=== PATIENT | female | born 1950 | race Caucasian/White ===

== ENCOUNTER 2017-07-24 15:34 | Inpatient (IN) | payer OTHER, MEDICARE ==
[~2017-07-24] VITALS: Ht 172.7 cm; Wt 75.4 kg
[~2017-07-24 15:34] MED LIST: BUPIVACAINE /PF 0.25% 30 ML VIAL INJ ONE; CLINDAMYCIN PHOSPHATE 600 mg/50mL D5W IV ONE; HEPARIN SODIUM,PORCINE 5000 UNITS/ML VIAL SUBCUT ONE; MIDAZOLAM HCL 5 MG/5 ML VIAL IVP ONE; NS 1000 ML BAG IV ONE; PROPOFOL 200MG/ 20ML VIAL (DIPRIVAN) IV ONE
[2017-07-24 15:40] VITALS: BP_SYST 150
[2017-07-24 19:51] LABS: BASOPHILS % (AUTO) 0.7 % (0.0-2.0); EOSINOPHILS # (AUTO) 0.1 K/uL (0.0-0.4); EOSINOPHILS % (AUTO) 1.8 % (0.0-4.0); LYMPHOCYTES # (AUTO) 1.4 K/uL (1.0-5.5); MONOCYTES # (AUTO) 0.4 K/uL (0.0-1.0)
[2017-07-24 19:56] LABS: LYMPHOCYTES % (AUTO) 20.3 % (20.5-51.5); MEAN CORPUSCULAR HEMOGLOBIN 28 pg (27-31); MEAN CORPUSCULAR HGB CONC 32 % (32-36); MEAN CORPUSCULAR VOLUME 87 fL (79.0-98.0); MONOCYTES % (AUTO) 6.1 % (1.7-9.3); NEUTROPHILS % (AUTO) 71.1 % (40.0-70.0); PLATELET COUNT (AUTO) 199 K/uL (130-430); RED BLOOD CELL COUNT(AUTO) 2.34 MIL/uL (4.2-6.2); RED CELL DISTRIBUTION WIDTH 16.7 % (9.0-15.0); WHITE BLOOD COUNT (AUTO) 6.9 K/uL (4.8-10.8)
[2017-07-24 19:59] LABS: CREATININE 6.08 mg/dL (0.55-1.30); HEMATOCRIT 20.4 % (36-48); HEMOGLOBIN 6.6 g/dL (12.0-16.0); POTASSIUM 5.4 mmol/L (3.5-5.1)
[2017-07-24 20:01] LABS: PROTHROMBIN TIME 10.3 SECS (9.5-12.5)
[2017-07-24 20:05] LABS: ALBUMIN 3.4 g/dL (3.4-4.8); TOTAL BILIRUBIN 0.3 mg/dL (0.0-1.0)
[2017-07-24] MEDS ORDERED: SODIUM POLYSTYRENE SULFONATE 15 GM/60 ML UDBTL PO ONE (20:30)
[2017-07-24] MEDS ORDERED: DEXTROSE 50% JECT 50 ML DISP.SYRIN IVP ONE (20:30)
[2017-07-24] MEDS ORDERED: NS 500 ML IV ONE (20:30)
[2017-07-24] MEDS ORDERED: INSULIN REGULAR, HUMAN 10 UNITS/0.1 ML INJ IVP ONE (20:30)
[2017-07-24] MEDS ORDERED: ALBUTEROL SULFATE 0.083% 2.5 MG/3 ML VIAL.NEB INH ONE (20:30)
[2017-07-24] MEDS ORDERED: DITXL5 PO (20:57)
[2017-07-24] MEDS ORDERED: LOSA100T11 PO (20:57)
[2017-07-24] MEDS ORDERED: PRAV40TA PO (20:57)
[2017-07-24] MEDS ORDERED: NOR10 PO (20:57)
[2017-07-24] MEDS ORDERED: FUROSEMIDE 40 MG/4 ML VIAL IVP ONE (21:00)
[2017-07-24 22:15] VITALS: BP_SYST 144
[2017-07-24] MEDS ORDERED: ACETAMINOPHEN 500 MG TABLET ONE (22:21)
[2017-07-24 22:25] LABS: BILIRUBIN,URINE NEGATIVE (NEGATIVE); BLOOD, URINE 1+ (NEGATIVE); CLARITY/URINE CLEAR (CLEAR); COLOR,URINE YELLOW (YELLOW); GLUCOSE,URINE NEGATIVE (NEGATIVE); KETONES,URINE NEGATIVE (NEGATIVE); LEUKOCYTE ESTERASE ,URINE NEGATIVE (NEGATIVE); NITRITE, URINE NEGATIVE (NEGATIVE); PH,URINE 5.5 (5.0-8.0); PROTEIN URINE 3+ (NEGATIVE); UROBILINOGEN,URINE 0.2 (0.2-1.0)
[2017-07-24] MEDS ORDERED: ACETAMINOPHEN 500 MG TABLET PO ONE (22:30)
[2017-07-24] MEDS ORDERED: ACETAMINOPHEN 325 MG TABLET PO PRN (22:45)
[2017-07-24] MEDS ORDERED: INSULIN ASPART 100 UNITS/ML, 10 ML VIAL (NovoLOG) SUBCUT PRN (22:45)
[2017-07-24] MEDS ORDERED: cefTRIAXone 1 GM in D5W 50 ML IV ONE (22:45)
[2017-07-24 22:51] LABS: BACTERIA,URINE FEW /HPF (None Seen); MUCUS,URINE 1+ /LPF (None Seen); WBC,URINE 0-3 /HPF (0-3)
[2017-07-24 22:52] LABS: FINE GRANULAR CASTS,URINE 0-10 /LPF (None Seen)
[2017-07-24] MEDS ORDERED: HYDROcodone/ACETAMIN 5-325 MG TAB (NORCO/ VICODIN) PO PRN (23:00)
[2017-07-24] MEDS ORDERED: cloNIDine HCL 0.1 MG TABLET PO PRN (23:00)
[2017-07-24 23:33] VITALS: BP_SYST 161
[2017-07-24 23:34] VITALS: BP_SYST 159
[2017-07-25] VITALS (8 sets, daily range): BP systolic 145–161
[2017-07-25] MEDS: hydrALAZINE HCL 25 MG TABLET PO SCH ×4 (00:49→22:14)
[2017-07-25] MEDS ORDERED: hydrALAZINE HCL 25 MG TABLET PO ONE (01:00)
[2017-07-25] MEDS ORDERED: INSULIN ASPART 100 UNITS/ML, 10 ML VIAL (NovoLOG) SUBCUT PRN ×2 (04:00→15:15)
[2017-07-25] MEDS ORDERED: DEXTROSE 50% JECT 50 ML DISP.SYRIN IVP PRN (04:00)
[2017-07-25] MEDS ORDERED: FLU VACC QS 2017-18(36MOS+)/PF 0.5 ML/SYR SYRINGE I.M. PRN (05:30)
[2017-07-25 08:00] LABS: ALBUMIN 3.1 g/dL (3.4-4.8); BILIRUBIN,DIRECT 0.1 mg/dL (0.0-0.3); CALCIUM 7.9 mg/dL (8.4-11.0); CREATININE 5.96 mg/dL (0.55-1.30); POTASSIUM 4.7 mmol/L (3.5-5.1); THYROID STIMULATING HORMONE 1.71 uIu/mL (0.34-4.82); TOTAL BILIRUBIN 0.3 mg/dL (0.0-1.0)
[2017-07-25 08:06] LABS: BASOPHILS % (AUTO) 0.4 % (0.0-2.0); EOSINOPHILS % (AUTO) 0.3 % (0.0-4.0); HEMATOCRIT 22.1 % (36-48); LYMPHOCYTES # (AUTO) 0.6 K/uL (1.0-5.5); LYMPHOCYTES % (AUTO) 8.2 % (20.5-51.5); MEAN CORPUSCULAR HEMOGLOBIN 27 pg (27-31); MEAN CORPUSCULAR HGB CONC 32 % (32-36); MEAN CORPUSCULAR VOLUME 87 fL (79.0-98.0); MONOCYTES # (AUTO) 0.2 K/uL (0.0-1.0); MONOCYTES % (AUTO) 3.3 % (1.7-9.3); NEUTROPHILS # (AUTO) 6.7 K/uL (1.8-7.7); PLATELET COUNT (AUTO) 164 K/uL (130-430); RED BLOOD CELL COUNT(AUTO) 2.56 MIL/uL (4.2-6.2); RED CELL DISTRIBUTION WIDTH 17.2 % (9.0-15.0); WHITE BLOOD COUNT (AUTO) 7.5 K/uL (4.8-10.8)
[2017-07-25] MEDS: FAMOTIDINE 20 MG TABLET PO SCH (08:40)
[2017-07-25 08:58] LABS: TOTAL IRON BIND. CAPACITY 252 ug/dL (250-450)
[2017-07-25] MEDS: ACETAMINOPHEN 325 MG TABLET PO PRN ×2 (09:28→20:38)
[2017-07-25 10:45] LABS: NEUTROPHILS % (AUTO) 87.8 % (40.0-70.0)
[2017-07-25] MEDS ORDERED: COMMUNICATION ORDER XX ONE (15:15)
[2017-07-25] MEDS: IPRATROPIUM/ALBUTEROL SULFATE 3 ML AMPUL.NEB INH SCH ×2 (15:58→23:56)
[2017-07-25] MEDS: NICOTINE 7 MG/24 HR PATCH.TD24 TD SCH (16:42)
[2017-07-25] MEDS ORDERED: cefTRIAXone 1 GM in D5W 50 ML IV SCH (21:00)
[2017-07-26] MEDS ORDERED: D5/0.45 NS 1,000 ML IV ONE
[2017-07-26] MEDS: hydrALAZINE HCL 25 MG TABLET PO SCH ×3 (05:55→23:06)
[2017-07-26 07:07] LABS: BASOPHILS % (AUTO) 0.6 % (0.0-2.0); EOSINOPHILS # (AUTO) 0.2 K/uL (0.0-0.4); EOSINOPHILS % (AUTO) 2.4 % (0.0-4.0); HEMATOCRIT 24.5 % (36-48); LYMPHOCYTES # (AUTO) 1.3 K/uL (1.0-5.5); LYMPHOCYTES % (AUTO) 18.6 % (20.5-51.5); MEAN CORPUSCULAR HEMOGLOBIN 28 pg (27-31); MEAN CORPUSCULAR HGB CONC 33 % (32-36); MEAN CORPUSCULAR VOLUME 86 fL (79.0-98.0); MONOCYTES # (AUTO) 0.5 K/uL (0.0-1.0); MONOCYTES % (AUTO) 6.7 % (1.7-9.3); NEUTROPHILS # (AUTO) 4.9 K/uL (1.8-7.7); NEUTROPHILS % (AUTO) 71.7 % (40.0-70.0); PLATELET COUNT (AUTO) 164 K/uL (130-430); RED BLOOD CELL COUNT(AUTO) 2.87 MIL/uL (4.2-6.2); RED CELL DISTRIBUTION WIDTH 16.1 % (9.0-15.0); WHITE BLOOD COUNT (AUTO) 6.9 K/uL (4.8-10.8)
[2017-07-26 07:37] LABS: ALBUMIN 3.1 g/dL (3.4-4.8); CALCIUM 7.7 mg/dL (8.4-11.0); CREATININE 5.64 mg/dL (0.55-1.30); POTASSIUM 4.2 mmol/L (3.5-5.1); TOTAL BILIRUBIN 0.3 mg/dL (0.0-1.0)
[2017-07-26] MEDS: IPRATROPIUM/ALBUTEROL SULFATE 3 ML AMPUL.NEB INH SCH ×3 (07:49→23:13)
[2017-07-26 08:00] VITALS: BP_SYST 161
[2017-07-26] MEDS ORDERED: fentaNYL CITRATE/PF 100 MCG/2 ML AMP IVP PRN ×2 (09:00)
[2017-07-26] MEDS ORDERED: ONDANSETRON HCL 4 MG/2 ML VIAL IVP PRN (09:00)
[2017-07-26 09:45] VITALS: BP_SYST 156
[2017-07-26] MEDS: FAMOTIDINE 20 MG TABLET PO SCH (09:56)
[2017-07-26] MEDS: NICOTINE 7 MG/24 HR PATCH.TD24 TD SCH (09:56)
[2017-07-26] MEDS: ACETAMINOPHEN 325 MG TABLET PO PRN ×2 (12:58→23:15)
[2017-07-26] MEDS ORDERED: HEPARIN SODIUM,PORCINE 5000 UNITS/ML VIAL MC ONE (16:45)
[2017-07-26] MEDS ORDERED: NEPHROVITE, (FOLIC ACID/VITAMIN B COMP W-C 1 TAB) PO ONE (17:00)
[2017-07-26 17:28] VITALS: BP_SYST 160
[2017-07-26 19:53] VITALS: BP_SYST 146
[2017-07-26 23:02] VITALS: BP_SYST 155
[2017-07-27 05:54] VITALS: BP_SYST 155
[2017-07-27] MEDS: hydrALAZINE HCL 25 MG TABLET PO SCH ×3 (05:57→22:58)
[2017-07-27] MEDS: IPRATROPIUM/ALBUTEROL SULFATE 3 ML AMPUL.NEB INH SCH ×3 (07:31→23:32)
[2017-07-27 08:19] LABS: ALBUMIN 2.7 g/dL (3.4-4.8); BASOPHILS % (AUTO) 0.7 % (0.0-2.0); CREATININE 3.98 mg/dL (0.55-1.30); EOSINOPHILS # (AUTO) 0.1 K/uL (0.0-0.4); EOSINOPHILS % (AUTO) 1.7 % (0.0-4.0); HEMATOCRIT 24.4 % (36-48); HEMOGLOBIN 8.1 g/dL (12.0-16.0); LYMPHOCYTES # (AUTO) 1.3 K/uL (1.0-5.5); LYMPHOCYTES % (AUTO) 20.2 % (20.5-51.5); MEAN CORPUSCULAR HEMOGLOBIN 28 pg (27-31); MEAN CORPUSCULAR HGB CONC 33 % (32-36); MEAN CORPUSCULAR VOLUME 86 fL (79.0-98.0); MONOCYTES # (AUTO) 0.5 K/uL (0.0-1.0); MONOCYTES % (AUTO) 8.3 % (1.7-9.3); NEUTROPHILS # (AUTO) 4.6 K/uL (1.8-7.7); NEUTROPHILS % (AUTO) 69.1 % (40.0-70.0); PLATELET COUNT (AUTO) 163 K/uL (130-430); POTASSIUM 3.3 mmol/L (3.5-5.1); RED BLOOD CELL COUNT(AUTO) 2.85 MIL/uL (4.2-6.2); TOTAL BILIRUBIN 0.3 mg/dL (0.0-1.0); WHITE BLOOD COUNT (AUTO) 6.5 K/uL (4.8-10.8)
[2017-07-27 08:24] VITALS: BP_SYST 155
[2017-07-27] MEDS: NICOTINE 7 MG/24 HR PATCH.TD24 TD SCH (10:11)
[2017-07-27] MEDS: NEPHROVITE, (FOLIC ACID/VITAMIN B COMP W-C 1 TAB) PO SCH (10:11)
[2017-07-27] MEDS: FAMOTIDINE 20 MG TABLET PO SCH (10:11)
[2017-07-27] MEDS: ACETAMINOPHEN 325 MG TABLET PO PRN (10:18)
[2017-07-27 12:25] VITALS: BP_SYST 140
[2017-07-27] MEDS ORDERED: METOCLOPRAMIDE HCL 10 MG TABLET PO ONE (16:00)
[2017-07-27 16:52] VITALS: BP_SYST 157
[2017-07-27] MEDS ORDERED: EPOETIN ALFA 10,000 UNITS/ML VIAL SUBCUT SCH (18:00)
[2017-07-27 20:00] VITALS: BP_SYST 136
[2017-07-27 23:12] VITALS: BP_SYST 144
[2017-07-28] MEDS: ACETAMINOPHEN 325 MG TABLET PO PRN (03:37)
[2017-07-28 03:54] VITALS: BP_SYST 136
[2017-07-28 04:26] LABS: FOLATE (FOLIC ACID) 8.8 ng/mL (>3.0)
[2017-07-28] MEDS: IPRATROPIUM/ALBUTEROL SULFATE 3 ML AMPUL.NEB INH SCH ×2 (07:00→15:32)
[2017-07-28] MEDS: hydrALAZINE HCL 25 MG TABLET PO SCH ×2 (07:05→14:44)
[2017-07-28 07:16] VITALS: BP_SYST 126
[2017-07-28 08:05] VITALS: BP_SYST 126
[2017-07-28] MEDS: NICOTINE 7 MG/24 HR PATCH.TD24 TD SCH (09:38)
[2017-07-28] MEDS: NEPHROVITE, (FOLIC ACID/VITAMIN B COMP W-C 1 TAB) PO SCH (09:38)
[2017-07-28] MEDS: FAMOTIDINE 20 MG TABLET PO SCH (09:38)
[2017-07-28 11:48] VITALS: BP_SYST 119
[2017-07-28 16:00] VITALS: BP_SYST 112
[2017-07-28] MEDS ORDERED: METOCLOPRAMIDE HCL 10 MG/2 ML VIAL IVP PRN (16:30)
[2017-07-28] MEDS ORDERED: POTASSIUM CHLORIDE 20 MEQ TAB.PRT.SR PO ONE (17:15)
[2017-07-28 17:28] VITALS: BP_SYST 112
[2017-07-29 04:07] LABS: HEPATITIS B SURFACE AG Negative (Negative)
== END 2017-07-28 19:15 | disposition home or self-care (01) | DRG 682 ==
LOC: SED 15:34 → STU 21:32 → SMU 07-27 13:27
PROVIDERS: ADMIT Internal Medicine; ATTEND Internal Medicine
PROC: 30233N1 Transfusion of Nonautologous Red Blood Cells into Peripheral Vein, Percutaneous Approach (ICD-10-PCS; 2017-07-24)
PROC: 30233N1 Transfusion of Nonautologous Red Blood Cells into Peripheral Vein, Percutaneous Approach (ICD-10-PCS; 2017-07-25)
PROC: B5191ZA Fluoroscopy of Inferior Vena Cava using Low Osmolar Contrast, Guidance (ICD-10-PCS; 2017-07-26)
PROC: B549ZZA Ultrasonography of Inferior Vena Cava, Guidance (ICD-10-PCS; 2017-07-26)
PROC: 5A1D70Z Performance of Urinary Filtration, Intermittent, Less than 6 Hours Per Day (ICD-10-PCS; 2017-07-26)
PROC: 06H033Z Insertion of Infusion Device into Inferior Vena Cava, Percutaneous Approach (ICD-10-PCS; principal; 2017-07-26 08:00)
PROC: 5A1D70Z Performance of Urinary Filtration, Intermittent, Less than 6 Hours Per Day (ICD-10-PCS; 2017-07-27)
DX: N17.9 Acute kidney failure, unspecified (principal); I50.31 Acute diastolic (congestive) heart failure; I13.2 Hypertensive heart and chronic kidney disease with heart failure and with stage 5 chronic kidney disease, or end stage renal disease; E87.2 Acidosis; E11.21 Type 2 diabetes mellitus with diabetic nephropathy; E11.65 Type 2 diabetes mellitus with hyperglycemia; E44.1 Mild protein-calorie malnutrition; J44.9 Chronic obstructive pulmonary disease, unspecified; N18.6 End stage renal disease; E87.5 Hyperkalemia; J06.9 Acute upper respiratory infection, unspecified; D63.1 Anemia in chronic kidney disease; E11.22 Type 2 diabetes mellitus with diabetic chronic kidney disease; F17.210 Nicotine dependence, cigarettes, uncomplicated; E78.5 Hyperlipidemia, unspecified; E66.9 Obesity, unspecified; R32 Unspecified urinary incontinence; B19.20 Unspecified viral hepatitis C without hepatic coma; M46.90 Unspecified inflammatory spondylopathy, site unspecified; Z90.710 Acquired absence of both cervix and uterus; Z83.3 Family history of diabetes mellitus; Z68.25 Body mass index [BMI] 25.0-25.9, adult; Z79.899 Other long term (current) drug therapy
CPT/HCPCS: 36415; 71045; 76000; 76770; 80048; 80053; 80061; 80076; 81000-TC; 82272; 82550-TC; 82607; 82728; 82746; 82962; 83036; 83540-TC; 83550-TC; 83605; 83735-TC; 83880; 84443-TC; 84484; 85025; 85610-TC; 85730-TC; 86706; 86803; 86886; 86900; 86901; 86920; 87040-TC; 87081; 87340; 90935; 90937; 93005; 93306; 93970; 94640; 94760; 96361; 96374; 96375; 99285; J0696; J0885; J1644; J1815; J1940; J2250; J2704; J2765; J3490; J7030; J7040; J7050; J7060; J8597; P9021; Q2037

== ENCOUNTER 2019-01-10 07:47 | Emergency (ER) | payer OTHER, MEDICAID ==
[~2019-01-10] VITALS: Ht 152.4 cm; Wt 73.0 kg
[~2019-01-10 07:47] MED LIST changes: -BUPIVACAINE /PF 0.25% 30 ML VIAL INJ ONE; -CLINDAMYCIN PHOSPHATE 600 mg/50mL D5W IV ONE; +DITXL5 PO; -HEPARIN SODIUM,PORCINE 5000 UNITS/ML VIAL SUBCUT ONE; +LOSA100T3 PO; -MIDAZOLAM HCL 5 MG/5 ML VIAL IVP ONE; +NOR10 PO; -NS 1000 ML BAG IV ONE; +PRAV40TA PO; -PROPOFOL 200MG/ 20ML VIAL (DIPRIVAN) IV ONE
[2019-01-10 07:58] VITALS: BP_SYST 171
[2019-01-10] MEDS ORDERED: ALBUTEROL SULFATE 0.083% 2.5 MG/3 ML VIAL.NEB INH ONE (08:15)
[2019-01-10] MEDS ORDERED: LEVOFLOXACIN 500 MG/D5W 100 ML IV ONE (08:15)
[2019-01-10] MEDS ORDERED: ALBUTEROL SULFATE 0.083% 2.5 MG/3 ML VIAL.NEB INH PRN (08:15)
[2019-01-10 08:59] LABS: BASOPHILS # (AUTO) 0.1 K/uL (0.0-0.2); BASOPHILS % (AUTO) 0.8 % (0.0-2.0); EOSINOPHILS # (AUTO) 0.1 K/uL (0.0-0.4); EOSINOPHILS % (AUTO) 1.2 % (0.0-4.0); HEMATOCRIT 32.8 % (36-48); HEMOGLOBIN 10.8 g/dL (12.0-16.0); LYMPHOCYTES # (AUTO) 0.9 K/uL (1.0-5.5); LYMPHOCYTES % (AUTO) 12.6 % (20.5-51.5); MEAN CORPUSCULAR HEMOGLOBIN 32 pg (27-31); MEAN CORPUSCULAR HGB CONC 33 % (32-36); MEAN CORPUSCULAR VOLUME 95 fL (79.0-98.0); MONOCYTES # (AUTO) 0.5 K/uL (0.0-1.0); MONOCYTES % (AUTO) 7.3 % (1.7-9.3); NEUTROPHILS # (AUTO) 5.5 K/uL (1.8-7.7); NEUTROPHILS % (AUTO) 78.1 % (40.0-70.0); PLATELET COUNT (AUTO) 92 K/uL (130-430); RED BLOOD CELL COUNT(AUTO) 3.45 MIL/uL (4.2-6.2); RED CELL DISTRIBUTION WIDTH 16.8 % (9.0-15.0)
[2019-01-10 09:09] LABS: CALCIUM 8.4 mg/dL (8.4-11.0); POTASSIUM 5.2 mmol/L (3.5-5.1)
[2019-01-10 09:12] LABS: PROTHROMBIN TIME 10.5 SECS (9.5-12.5)
[2019-01-10 09:17] LABS: CREATININE 9.89 mg/dL (0.55-1.30)
[2019-01-10 09:19] LABS: TOTAL BILIRUBIN 0.5 mg/dL (0.0-1.0)
[2019-01-10 09:20] LABS: ALBUMIN 3.7 g/dL (3.4-4.8)
[2019-01-10] MEDS ORDERED: FUROSEMIDE 20 MG TABLET PO ONE (09:30)
[2019-01-10 10:05] VITALS: BP_SYST 168
[2019-01-10] MEDS ORDERED: FUROSEMIDE 20 MG TABLET ONE (10:27)
== END 2019-01-10 10:05 | disposition home or self-care (01) ==
LOC: SED 07:47
DX: I50.9 Heart failure, unspecified (principal); E11.9 Type 2 diabetes mellitus without complications; Z88.0 Allergy status to penicillin; Z79.899 Other long term (current) drug therapy
CPT/HCPCS: 36415; 71045; 80053; 83605; 83880; 84484; 85025; 87040; 85610; 93005; 94640; 96365; 99284; J1956; J7613

== ENCOUNTER 2019-02-17 10:40 | Emergency (ER) | payer OTHER, MEDICAID ==
[~2019-02-17] VITALS: Ht 152.4 cm; Wt 73.9 kg
[2019-02-17 10:40] VITALS: BP_SYST 180
--- NOTE | 2019-02-17 10:40 | NUR ---
BROUGHT BACK TO BED #3 AFTER TRIAGE, REPORT GIVEN TO RIAZ
--- NOTE | 2019-02-17 10:45 | NUR ---
Pt c/o SOB after Dialysis. Pt has no acute distress noted.
[2019-02-17] MEDS ORDERED: NITROGLYCERIN 1 INCH (GM) OINT. TP ONE (11:00)
--- NOTE | 2019-02-17 11:10 | NUR ---
ER at bedside examining patient.
[2019-02-17 11:21] LABS: BASOPHILS # (AUTO) 0.1 K/uL (0.0-0.2); BASOPHILS % (AUTO) 1.1 % (0.0-2.0); EOSINOPHILS # (AUTO) 0.1 K/uL (0.0-0.4); EOSINOPHILS % (AUTO) 1.4 % (0.0-4.0); HEMATOCRIT 34.9 % (36-48); HEMOGLOBIN 11.5 g/dL (12.0-16.0); LYMPHOCYTES % (AUTO) 17.3 % (20.5-51.5); MEAN CORPUSCULAR HEMOGLOBIN 30 pg (27-31); MEAN CORPUSCULAR HGB CONC 33 % (32-36); MEAN CORPUSCULAR VOLUME 92 fL (79.0-98.0); MONOCYTES # (AUTO) 0.6 K/uL (0.0-1.0); MONOCYTES % (AUTO) 10.1 % (1.7-9.3); NEUTROPHILS # (AUTO) 3.9 K/uL (1.8-7.7); NEUTROPHILS % (AUTO) 70.1 % (40.0-70.0); RED BLOOD CELL COUNT(AUTO) 3.79 MIL/uL (4.2-6.2); RED CELL DISTRIBUTION WIDTH 16.9 % (9.0-15.0); WHITE BLOOD COUNT (AUTO) 5.5 K/uL (4.8-10.8)
[2019-02-17 11:30] LABS: PLATELET COUNT (AUTO) 100 K/uL (130-430)
--- NOTE | 2019-02-17 11:30 | NUR ---
Pt reports ease in resp effort after breathing treatment
[2019-02-17 11:34] LABS: CALCIUM 8.7 mg/dL (8.4-11.0); CREATININE 2.8 mg/dL (0.55-1.30); POTASSIUM 3.5 mmol/L (3.5-5.1)
[2019-02-17 11:37] LABS: INR 1.1 (0.8-1.2); PROTHROMBIN TIME 11.1 SECS (9.5-12.5)
[2019-02-17 11:40] LABS: ALBUMIN 3.5 g/dL (3.4-4.8); TOTAL BILIRUBIN 0.6 mg/dL (0.0-1.0)
[2019-02-17] MEDS ORDERED: ALBUTEROL SULFATE 0.083% 2.5 MG/3 ML VIAL.NEB INH ONE (12:00)
[2019-02-17 12:41] VITALS: BP_SYST 153
--- NOTE | 2019-02-17 12:41 | NUR ---
Patient given written and verbal discharge instructions and verbalizes understanding. ER MD discussed with patient the results and treatment provided. Patient in stable condition. ID arm band removed. Rx of albuterol inh given. Patient educated on pain management and to follow up with PMD. Pain Scale 0. Opportunity for questions provided and answered. Medication side effect fact sheet provided.
== END 2019-02-17 12:41 | disposition home or self-care (01) ==
LOC: SED 10:40
DX: J40 Bronchitis, not specified as acute or chronic (principal); Z88.0 Allergy status to penicillin; Z79.899 Other long term (current) drug therapy
CPT/HCPCS: 36415; 71045; 80053; 83880; 84484; 85025; 85610; 94640; 99284; J7613

== ENCOUNTER 2021-05-27 23:25 | Inpatient (IN) | payer OTHER, MEDICAID, SELFPAY ==
[~2021-05-27] VITALS: Ht 152.4 cm; Wt 75.7 kg
[2021-05-27 23:40] VITALS: BP_SYST 132
--- NOTE | 2021-05-27 23:45 | NUR ---
Placed in room 1 . Placed on traffic monitor specialist, blood pressure machine and pulse oximeter. To gown for exam. Side rails up. Report given to Wu DIAS(registry).
--- NOTE | 2021-05-27 23:50 | NUR ---
JAE Martinez at bedside examining patient.
[2021-05-28] MEDS ORDERED: FUROSEMIDE 40 MG/4 ML VIAL IVP ONE (00:45)
[2021-05-28 00:59] LABS: BASOPHILS # (AUTO) 0.1 K/uL (0.0-0.2); BASOPHILS % (AUTO) 0.7 % (0.0-2.0); EOSINOPHILS # (AUTO) 0.1 K/uL (0.0-0.4); EOSINOPHILS % (AUTO) 0.5 % (0.0-4.0); HEMATOCRIT 28.5 % (36-48); HEMOGLOBIN 9.2 g/dL (12.0-16.0); LYMPHOCYTES # (AUTO) 0.8 K/uL (1.0-5.5); LYMPHOCYTES % (AUTO) 6.4 % (20.5-51.5); MEAN CORPUSCULAR HEMOGLOBIN 30 pg (27-31); MEAN CORPUSCULAR HGB CONC 33 % (32-36); MEAN CORPUSCULAR VOLUME 92 fL (79.0-98.0); MONOCYTES # (AUTO) 0.9 K/uL (0.0-1.0); MONOCYTES % (AUTO) 7.1 % (1.7-9.3); NEUTROPHILS # (AUTO) 10.5 K/uL (1.8-7.7); NEUTROPHILS % (AUTO) 85.3 % (40.0-70.0); PLATELET COUNT (AUTO) 225 K/uL (130-430); RED BLOOD CELL COUNT(AUTO) 3.09 MIL/uL (4.2-6.2); RED CELL DISTRIBUTION WIDTH 15.2 % (9.0-15.0); WHITE BLOOD COUNT (AUTO) 12.3 K/uL (4.8-10.8)
[2021-05-28 01:23] LABS: INR 1.1 (0.8-1.2); PROTHROMBIN TIME 11.2 SECS (9.5-12.5)
[2021-05-28 01:29] LABS: ANION GAP 14 (5-15); CALCIUM 8.2 mg/dL (8.4-11.0); CHLORIDE 95 mmol/L (98-107); GLUCOSE 171 mg/dL (70-99); SODIUM SERUM 135 mmol/L (136-145); UREA NITROGEN, BLOOD 67 mg/dL (8-21)
[2021-05-28] MEDS ORDERED: ACETAMINOPHEN 325 MG TABLET ONE (01:30)
[2021-05-28 01:38] LABS: ALANINE AMINOTRANSFERASE 38 U/L (12-78); ALBUMIN 2.7 g/dL (3.4-4.8); ASPARTATE AMINOTRANSFERASE 53 U/L (10-37); TOTAL BILIRUBIN 0.5 mg/dL (0.0-1.0)
[2021-05-28 01:47] LABS: CREATININE 7.61 mg/dL (0.55-1.30)
[2021-05-28] MEDS ORDERED: NITROGLYCERIN 1 INCH (GM) OINT. TP ONE (02:00)
--- NOTE | 2021-05-28 02:55 | NUR ---
[facility] without difficulty.
--- NOTE | 2021-05-28 03:15 | NUR ---
Pt brought back to room ED1 without incident. Pt reconnected to bedside monitor and a set of fresh, normal VS obtained. Pt is resting comfortably, no s/sx of distress present.
[2021-05-28 03:38] LABS: POTASSIUM 5.3 mmol/L (3.5-5.1)
[2021-05-28] MEDS ORDERED: ALBUTEROL SULFATE 0.083% 2.5 MG/3 ML VIAL.NEB INH ONE (03:45)
[2021-05-28] MEDS ORDERED: IPRATROPIUM BROM 0.5 MG/2.5 ML VIAL.NEB (ATROVENT) INH ONE (03:45)
--- NOTE | 2021-05-28 03:50 | NUR ---
Pt never had dinner last night and was hungery. Pt given dinner tray per request, Cleared by EDMD before hand after reviewing the CTA. Pt ate approx 75% of dinner tray.
[2021-05-28] MEDS ORDERED: ZOLPIDEM TARTRATE 5 MG TABLET ONE (05:41)
[2021-05-28] MEDS ORDERED: cefTRIAXone 1 GM in D5W 50 ML IV ONE (06:15)
[2021-05-28] MEDS ORDERED: AZITHROMYCIN 500 MG in NS 250 ML IV ONE (06:15)
[2021-05-28] MEDS ORDERED: MUPIROCIN 2% TOPICAL OINTMENT 22 GM NS PRN (07:15)
[2021-05-28] MEDS ORDERED: POTASSIUM CHLORIDE 20 MEQ TAB.PRT.SR PO PRN (07:15)
[2021-05-28] MEDS ORDERED: ONDANSETRON HCL 4 MG/2 ML VIAL IVP PRN (07:15)
[2021-05-28] MEDS ORDERED: MORPHINE 2 MG/ML INJ. SYRINGE IVP PRN ×2 (07:15)
[2021-05-28] MEDS ORDERED: ZOLPIDEM TARTRATE 5 MG TABLET PO PRN (07:15)
[2021-05-28] MEDS ORDERED: LORazepam 2 MG/ML VIAL IVP PRN (07:15)
[2021-05-28] MEDS ORDERED: DOCUSATE SODIUM 100 MG CAPSULE PO PRN (07:15)
[2021-05-28] MEDS ORDERED: NALOXONE HCL 0.4 MG/ML AMP (NARCAN) IVP PRN ×2 (07:15)
[2021-05-28] MEDS ORDERED: ACETAMINOPHEN 325 MG TABLET PO PRN ×2 (07:15→08:15)
[2021-05-28] MEDS ORDERED: MAGNESIUM SULFATE 50 ML IV PRN (07:15)
--- NOTE | 2021-05-28 08:00 | NUR ---
Patient tolerated 98% of her meal.
--- NOTE | 2021-05-28 08:00 | NUR ---
patient alert and oriented x 3, coopertative. Faroese speaking. Nephrology at bedside at this time. patient will receive dialysis today. patient up on side of bed eating without difficulty, NSR on the property assessment monitor, dialysis shunt in left upper extremity with positive thrill and bruit. comfort and safety implemented and maintained. iv right peripheral 20 guage, flushes well intact.
[2021-05-28] MEDS ORDERED: LOSARTAN POTASSIUM 50 MG TABLET (COZAAR) PO SCH (09:00)
[2021-05-28] MEDS ORDERED: amLODIPine BESYLATE 5 MG TABLET PO SCH (09:00)
--- NOTE | 2021-05-28 09:00 | NUR ---
Pharmacy notified to send medications oxybutanin and lipitor po. Not in pixis. will administer when received from pharmacy. pharmacy states medication is on the way.
[2021-05-28] MEDS ORDERED: ATORVASTATIN 10 MG TABLET PO ONE (09:30)
[2021-05-28] MEDS ORDERED: OXYBUTYNIN CHLORIDE 5 MG TABLET PO ONE (09:30)
[2021-05-28] MEDS: HEPARIN SODIUM,PORCINE 5,000 UNITS/ML VIAL SUBCUT SCH ×3 (10:10→22:15)
--- NOTE | 2021-05-28 13:30 | NUR ---
Patient will be admitted to care of . Admitted to telemetry bed unit. Will go to room 133 in stable condition. Belongings list completed. Complete and up to date summary report printed. SBAR report to be given at bedside to Isa Velez with opportunity for questions.
--- NOTE | 2021-05-28 13:30 | NUR ---
Patient to tele room 133 report to Noelle Velez on telemetry. patient transported with nursing service administrator in stable conditon.
--- NOTE | 2021-05-28 13:54 | NUR ---
CONSULTATION PAGED REASON FOR CONSULTATION:CHF EXACERBATION WAS CONSULT CALLED?Y PERSON WHO WAS NOTIFIED:JOSSELIN CONSULTING PHYSICIAN:YOLANDA RAMIREZ FARHAD SMALL ANIMAL CARETAKER SPECIALTY:NEPHRO SMALL ANIMAL CARETAKER PHONE NUMBER:[phone] REQUESTING PHYSICIAN:DR.[facility]
--- NOTE | 2021-05-28 13:57 | NUR ---
CONSULTATION PAGED REASON FOR CONSULTATION:CHF EXACERBATION WAS CONSULT CALLED?Y PERSON WHO WAS NOTIFIED:GUTIERREZ CONSULTING PHYSICIAN:MATT WALTON SALES REPRESENTATIVE GRAPHIC [employer] SPECIALTY:CARDIO SALES REPRESENTATIVE GRAPHIC ART PHONE NUMBER:[phone] REQUESTING PHYSICIAN:DR.SINGHS[facility] CENTERFLAVIA
[2021-05-28 14:00] VITALS: BP_SYST 153
[2021-05-28 14:59] VITALS: BP_SYST 153
[2021-05-28 16:00] VITALS: BP_SYST 149
--- NOTE | 2021-05-28 19:30 | NUR ---
OPENING NOTE ENDORSED CARE FROM DAY SHIFT. PT SITTING IN BED RECEIVING HEMODIALYSIS, NO APPARENT DISTRESS NOTED. FALL AND SAFETY PRECAUTIONS IN PLACE. BED IN LOWEST POSITION WITH CALL LIGHT WITHIN REACH.
[2021-05-28 19:35] VITALS: BP_SYST 149
--- NOTE | 2021-05-28 21:38 | NUR ---
Rahat Villalobos patient is tachycardic Addendum: 05/28/21 at 2144 by Heather Hastings RN Dr. Villalobos informed regarding elevated heart rate atrial fibrillation to monitor patient.
[2021-05-28] MEDS: MIDODRINE HCL 5 MG TABLET (PROAMATINE) PO SCH (22:04)
[2021-05-28] MEDS: OXYBUTYNIN CHLORIDE 5 MG TABLET PO SCH (22:05)
[2021-05-29 02:17] VITALS: BP_SYST 148
--- NOTE | 2021-05-29 07:18 | NUR ---
CLOSING NOTES ENDORSED CARE TO DAY SHIFT. PT IS IN BED SLEEPING, NO APPARENT DISTRESS NOTED. SAFETY PRECAUTIONS IN PLACE. BED IN LOWEST POSITION WITH CALL LIGHT WITHIN REACH.
[2021-05-29 08:00] VITALS: BP_SYST 144
[2021-05-29 08:03] LABS: BASOPHILS # (AUTO) 0.1 K/uL (0.0-0.2); BASOPHILS % (AUTO) 1.4 % (0.0-2.0); EOSINOPHILS # (AUTO) 0.2 K/uL (0.0-0.4); HEMATOCRIT 26.9 % (36-48); LYMPHOCYTES # (AUTO) 1.1 K/uL (1.0-5.5); LYMPHOCYTES % (AUTO) 11.7 % (20.5-51.5); MEAN CORPUSCULAR HEMOGLOBIN 31 pg (27-31); MEAN CORPUSCULAR HGB CONC 33 % (32-36); MEAN CORPUSCULAR VOLUME 92 fL (79.0-98.0); MONOCYTES # (AUTO) 0.7 K/uL (0.0-1.0); MONOCYTES % (AUTO) 7.2 % (1.7-9.3); NEUTROPHILS # (AUTO) 7.4 K/uL (1.8-7.7); NEUTROPHILS % (AUTO) 77.7 % (40.0-70.0); PLATELET COUNT (AUTO) 201 K/uL (130-430); RED BLOOD CELL COUNT(AUTO) 2.94 MIL/uL (4.2-6.2); RED CELL DISTRIBUTION WIDTH 15.9 % (9.0-15.0); WHITE BLOOD COUNT (AUTO) 9.5 K/uL (4.8-10.8)
[2021-05-29 08:28] LABS: ANION GAP 12 (5-15); CALCIUM 8.2 mg/dL (8.4-11.0); CHLORIDE 98 mmol/L (98-107); CREATININE 5.98 mg/dL (0.55-1.30); GLUCOSE 132 mg/dL (70-99); POTASSIUM 4.6 mmol/L (3.5-5.1); SODIUM SERUM 138 mmol/L (136-145); UREA NITROGEN, BLOOD 41 mg/dL (8-21)
[2021-05-29] MEDS: HEPARIN SODIUM,PORCINE 5,000 UNITS/ML VIAL SUBCUT SCH ×2 (09:00→21:00)
[2021-05-29] MEDS: OXYBUTYNIN CHLORIDE 5 MG TABLET PO SCH ×2 (09:10→21:38)
[2021-05-29] MEDS: MIDODRINE HCL 5 MG TABLET (PROAMATINE) PO SCH ×2 (09:10→21:38)
[2021-05-29] MEDS: ATORVASTATIN 10 MG TABLET PO SCH (09:10)
[2021-05-29] MEDS: cefTRIAXone 1 GM in D5W 50 ML IV SCH (09:23)
[2021-05-29 12:00] VITALS: BP_SYST 130
[2021-05-29 13:01] LABS: CHOLESTEROL 126 mg/dL (<200); HDL CHOLESTEROL 44 mg/dL (>55); LDL CHOLESTEROL 58 mg/dL (<100); TRIGLYCERIDES 134 mg/dL (30-150)
--- NOTE | 2021-05-29 14:37 | NUR ---
CALLED ARUN LUO AND THE CHARGE NURSE ATTENTIONS' RE: SUSTAINED HIGH HEART RATE.
[2021-05-29] MEDS ORDERED: NS 250 ML IV ONE (15:30)
[2021-05-29 16:00] VITALS: BP_SYST 100
--- NOTE | 2021-05-29 19:40 | NUR ---
OPENING NOTES ENDORSED CARE FROM DAY SHIFT RN. PT IS LYING IN BED RESTING. VITALS WNL, NO DISTRESS NOTED. FALL AND SAFETY PRECAUTIONS IN PLACE. BED IN LOWEST POSITION WITH CALL LIGHT WITHIN REACH.
[2021-05-29 20:00] VITALS: BP_SYST 135
[2021-05-30] VITALS: BP_SYST 139
--- NOTE | 2021-05-30 07:30 | NUR ---
REPORT RECEIVED FROM ITZEL DIAS. PT IS A/O X4, VSS, NSR ON TELE, NO ACUTE DISTRESS, PUI FOR COVID. ASSUMING CARE FOR PATIENT.
[2021-05-30 08:00] VITALS: BP_SYST 147
[2021-05-30 08:08] LABS: BASOPHILS # (AUTO) 0.1 K/uL (0.0-0.2); BASOPHILS % (AUTO) 0.9 % (0.0-2.0); EOSINOPHILS # (AUTO) 0.1 K/uL (0.0-0.4); EOSINOPHILS % (AUTO) 1.7 % (0.0-4.0); HEMATOCRIT 27.4 % (36-48); LYMPHOCYTES # (AUTO) 1.1 K/uL (1.0-5.5); LYMPHOCYTES % (AUTO) 14.8 % (20.5-51.5); MEAN CORPUSCULAR HEMOGLOBIN 30 pg (27-31); MEAN CORPUSCULAR HGB CONC 33 % (32-36); MEAN CORPUSCULAR VOLUME 92 fL (79.0-98.0); MONOCYTES # (AUTO) 0.8 K/uL (0.0-1.0); MONOCYTES % (AUTO) 10.3 % (1.7-9.3); NEUTROPHILS # (AUTO) 5.6 K/uL (1.8-7.7); NEUTROPHILS % (AUTO) 72.3 % (40.0-70.0); PLATELET COUNT (AUTO) 170 K/uL (130-430); RED BLOOD CELL COUNT(AUTO) 2.99 MIL/uL (4.2-6.2); RED CELL DISTRIBUTION WIDTH 15.6 % (9.0-15.0); WHITE BLOOD COUNT (AUTO) 7.7 K/uL (4.8-10.8)
[2021-05-30 08:35] LABS: ANION GAP 12 (5-15); CALCIUM 8.5 mg/dL (8.4-11.0); CHLORIDE 98 mmol/L (98-107); CREATININE 5.23 mg/dL (0.55-1.30); GLUCOSE 124 mg/dL (70-99); POTASSIUM 4.4 mmol/L (3.5-5.1); SODIUM SERUM 137 mmol/L (136-145); UREA NITROGEN, BLOOD 34 mg/dL (8-21)
[2021-05-30] MEDS: HEPARIN SODIUM,PORCINE 5,000 UNITS/ML VIAL SUBCUT SCH ×3 (09:00→21:03)
[2021-05-30] MEDS: cefTRIAXone 1 GM in D5W 50 ML IV SCH (09:15)
[2021-05-30] MEDS: OXYBUTYNIN CHLORIDE 5 MG TABLET PO SCH ×2 (09:17→21:01)
[2021-05-30] MEDS: ATORVASTATIN 10 MG TABLET PO SCH (09:17)
[2021-05-30] MEDS: MIDODRINE HCL 5 MG TABLET (PROAMATINE) PO SCH ×2 (09:18→21:02)
--- NOTE | 2021-05-30 11:00 | NUR ---
NURSING: REPORT RECEIVED FROM GERALDINE DIAS. PT STABLE AT THIS TIME PER REPORT. AWAITING FOR PT.
[2021-05-30 12:00] VITALS: BP_SYST 142
[2021-05-30 16:00] VITALS: BP_SYST 157
[2021-05-30 20:00] VITALS: BP_SYST 128
--- NOTE | 2021-05-30 22:01 | NUR ---
FRAN ELLISON REGARDING PATIENT REQUEST FOR HEARTBURN MEDICATION Orders protonix IVP 40mg daily and can give one dose now.
[2021-05-30] MEDS: PANTOPRAZOLE SODIUM 40 MG/VIAL (PROTONIX) IVP SCH (22:20)
[2021-05-31] VITALS: BP_SYST 133
--- NOTE | 2021-05-31 | NUR ---
ROUNDING NOTES Patient resting in bed - no s/s pain or distress noted. Respirations even and unlabored - head of bed elevated. IV site patent - no s/s redness, infection, or infiltration. Bed locked and in lowest position. Call light within reach.
[2021-05-31 07:32] LABS: BASOPHILS # (AUTO) 0.1 K/uL (0.0-0.2); BASOPHILS % (AUTO) 1.5 % (0.0-2.0); EOSINOPHILS # (AUTO) 0.2 K/uL (0.0-0.4); EOSINOPHILS % (AUTO) 2.5 % (0.0-4.0); HEMATOCRIT 28.3 % (36-48); HEMOGLOBIN 9.2 g/dL (12.0-16.0); LYMPHOCYTES # (AUTO) 1.1 K/uL (1.0-5.5); LYMPHOCYTES % (AUTO) 13.8 % (20.5-51.5); MEAN CORPUSCULAR HEMOGLOBIN 30 pg (27-31); MEAN CORPUSCULAR HGB CONC 33 % (32-36); MEAN CORPUSCULAR VOLUME 92 fL (79.0-98.0); MONOCYTES # (AUTO) 0.8 K/uL (0.0-1.0); MONOCYTES % (AUTO) 9.8 % (1.7-9.3); NEUTROPHILS # (AUTO) 5.8 K/uL (1.8-7.7); NEUTROPHILS % (AUTO) 72.4 % (40.0-70.0); PLATELET COUNT (AUTO) 183 K/uL (130-430); RED BLOOD CELL COUNT(AUTO) 3.09 MIL/uL (4.2-6.2); RED CELL DISTRIBUTION WIDTH 15.4 % (9.0-15.0)
[2021-05-31 07:55] LABS: ANION GAP 13 (5-15); CHLORIDE 97 mmol/L (98-107); GLUCOSE 128 mg/dL (70-99); POTASSIUM 4.6 mmol/L (3.5-5.1); SODIUM SERUM 136 mmol/L (136-145); UREA NITROGEN, BLOOD 56 mg/dL (8-21)
[2021-05-31 08:00] VITALS: BP_SYST 153
[2021-05-31] MEDS: MIDODRINE HCL 5 MG TABLET (PROAMATINE) PO SCH (08:45)
[2021-05-31] MEDS: ATORVASTATIN 10 MG TABLET PO SCH (08:45)
[2021-05-31] MEDS: PANTOPRAZOLE SODIUM 40 MG/VIAL (PROTONIX) IVP SCH (08:46)
[2021-05-31] MEDS: OXYBUTYNIN CHLORIDE 5 MG TABLET PO SCH (08:46)
[2021-05-31] MEDS: HEPARIN SODIUM,PORCINE 5,000 UNITS/ML VIAL SUBCUT SCH (08:47)
[2021-05-31 12:00] VITALS: BP_SYST 140
[2021-05-31 12:39] VITALS: BP_SYST 140
[2021-05-31] MEDS: cefTRIAXone 1 GM in D5W 50 ML IV SCH (12:47)
== END 2021-05-31 16:45 | disposition home or self-care (01) | DRG 280 ==
LOC: SED 23:25 → STU 23:50
PROVIDERS: ADMIT General Practice; ATTEND General Practice
DX: I13.2 Hypertensive heart and chronic kidney disease with heart failure and with stage 5 chronic kidney disease, or end stage renal disease (principal); J18.9 Pneumonia, unspecified organism; I21.A1 Myocardial infarction type 2; I50.43 Acute on chronic combined systolic (congestive) and diastolic (congestive) heart failure; N18.6 End stage renal disease; E44.0 Moderate protein-calorie malnutrition; J44.0 Chronic obstructive pulmonary disease with (acute) lower respiratory infection; F17.200 Nicotine dependence, unspecified, uncomplicated; E11.22 Type 2 diabetes mellitus with diabetic chronic kidney disease; D63.8 Anemia in other chronic diseases classified elsewhere; D72.829 Elevated white blood cell count, unspecified; Z20.822 Contact with and (suspected) exposure to COVID-19; Z83.3 Family history of diabetes mellitus; Z99.2 Dependence on renal dialysis; Z90.710 Acquired absence of both cervix and uterus; Z68.32 Body mass index [BMI] 32.0-32.9, adult
CPT/HCPCS: 36415; 71045; 71275; 76376; 80048; 80053; 80061; 82962; 83036; 83605; 83735; 83880; 84484; 85025; 85379; 85610-TC; 85730-TC; 87040; 87081; 93005; 93306; 94640; 96374; 96375; 99285; C9113; G0378; J0456; J0696; J1644; J1940; J2270; J7050; J7060; J7613; Q9967; U0003